=== PATIENT | female | born 1950 | race Caucasian/White ===

== ENCOUNTER 2020-03-04 09:37 | Emergency (ER) | payer OTHER, SELFPAY ==
[~2020-03-04] VITALS: Ht 160 cm; Wt 90.7 kg
[2020-03-04 09:51] VITALS: BP 94/65
[2020-03-04] MEDS ORDERED: ONDANSETRON 4 MG ODT PO ONE (11:30)
--- NOTE | 2020-03-04 11:41 | NUR ---
ANTONIO SWABBED AND HANDED TO BRICK PITCHER
--- NOTE | 2020-03-04 11:44 | NUR ---
69 Y/O BIB DAUGHTER C/O FEVER/COUGH/DIARRHEA SINCE 02/28. STATES SHE WAS TESTED ON 02/25 AND WAS NEGATIVE. C/O OF DARK STOOLS PT IS C/O NAUSEA AT THIS TIME AND BODY ACHES. AAOX4, UNABLE TO AMBULATE AT THIS TIME D/T WEAKNESS MED HX: GERD, ULCERS
[2020-03-04 12:19] LABS: HEMATOCRIT 37.7 % (36-48); HEMOGLOBIN 12.6 g/dL (12.0-16.0); LYMPHOCYTES # (AUTO) 0.7 K/uL (2.5-16.5); LYMPHOCYTES % (AUTO) 16.5 % (20.5-51.1); MEAN CORPUSCULAR HEMOGLOBIN 30 pg (27-31); MEAN CORPUSCULAR HGB CONC 33 g/dL (33-37); MEAN CORPUSCULAR VOLUME 88.9 fL (80-94); MONOCYTES # (AUTO) 0.4 K/uL (0.8-1.0); MONOCYTES % (AUTO) 8.8 % (1.7-9.3); NEUTROPHILS % (AUTO) 74.7 % (42.2-75.2); PLATELET COUNT (AUTO) 202 K/uL (140-450); RED BLOOD CELL COUNT(AUTO) 4.25 MIL/uL (4.20-5.40); RED CELL DISTRIBUTION WIDTH 13.7 % (11.6-13.7)
[2020-03-04 12:39] LABS: ALBUMIN 3.5 g/dL (3.4-5.0); ANION GAP 13.9 (8-16); CARBON DIOXIDE 24.8 mmol/L (21-32); CREATININE 0.9 mg/dL (0.6-1.3); POTASSIUM 3.7 mmol/L (3.5-5.1); TOTAL BILIRUBIN 0.4 mg/dL (0.0-1.0)
[2020-03-04 12:42] LABS: PROTHROMBIN TIME 10.4 secs (10.8-13.4)
[2020-03-04 14:40] VITALS: BP 127/71
--- NOTE | 2020-03-04 14:40 | NUR ---
Patient discharged with v/s stable. Written and verbal after care instructions given and explained. Patient alert, oriented and verbalized understanding of instructions. Ambulatory with steady gait. All questions addressed prior to discharge. ID band removed. Patient advised to follow up with PMD. Rx of ZOFRAN, PROTONIX given. Patient educated on indication of medication including possible reaction and side effects. Opportunity to ask questions provided and answered.
== END 2020-03-04 14:40 | disposition home or self-care (01) ==
LOC: MED 09:37
DX: K92.2 Gastrointestinal hemorrhage, unspecified (principal); E11.9 Type 2 diabetes mellitus without complications; Z90.49 Acquired absence of other specified parts of digestive tract
CPT/HCPCS: 36415; 80053; 83690; 84484; 85025; 85610; 85730; 86886; 86900; 86901; 87426; 93005; 99284; Q0162